=== PATIENT | female | born 1940 | race Caucasian/White ===

== ENCOUNTER 2017-11-05 14:00 | Emergency (ER) | payer MEDICARE, BC ==
[~2017-11-05] VITALS: Ht 162.6 cm; Wt 68.0 kg
[~2017-11-05 14:00] MED LIST: ATORVASTATIN CA10 MG ORAL; BUSPAR10 MG ORAL; FOLIC ACID1 MG ORAL; LANOXIN125 MCG ORAL; LEVOTHYROXINE50 MCG ORAL; LORAZEPAM2 MG/1 M4 ORAL; LYRICA75 M1 ORAL; METHOTREXATE2.5 MG PO; NORCO 5-325 TA1 EAC1 ORAL; PAXIL10 MG ORAL; PRAMIPEXOLE D0.25 MG ORAL; PROTONIX40 MG ORAL; TOPIRAMATE25 MG ORAL; TRAZODONE HCL150 MG ORAL; WELLBUTRIN SR100 MG ORAL; atarax PO
[2017-11-05 14:12] VITALS: BP 145/62
[2017-11-05] MEDS ORDERED: SIMPONI AR50 MG/4 ML IV (14:16)
[2017-11-05] MEDS ORDERED: NORVASC5 MG ORAL (14:16)
[2017-11-05] MEDS ORDERED: LYRICA75 M1 ORAL (14:16)
[2017-11-05] MEDS ORDERED: PRAMIPEXOLE D0.25 MG ORAL (14:16)
[2017-11-05] MEDS ORDERED: SUCRALFATE1 GM ORAL (14:16)
[2017-11-05] MEDS ORDERED: VITAMIN D250000 UNI1 ORAL (14:16)
[2017-11-05] MEDS ORDERED: LANOXIN125 MCG ORAL (14:16)
[2017-11-05] MEDS ORDERED: CREON DR 24,001 EACH PO (14:16)
[2017-11-05] MEDS ORDERED: PREMARIN0.625 MG ORAL (14:16)
[2017-11-05] MEDS ORDERED: oxyCODONE HCL/Acetaminophen 5/325mg PO ONE (14:30)
[2017-11-05] MEDS ORDERED: Tetanus/Diptheria/Pertussis Vaccine 0.5ml Syr IM ONE (14:30)
[2017-11-05] MEDS ORDERED: oxyCODONE HCL/Acetaminophen 5/325mg ORAL ONE (14:51)
--- NOTE | 2017-11-05 14:59 | Emergency Room Report ---
History of Present Illness General Chief Complaint: Multiple Trauma/Fall Source: Patient, EMS Present Illness HPI 77-year-old female presents ED for evaluation. Patient brought in by EMS. States that she tripped across the street and fell landing forward hitting her head. Denies LOC. Presents with bruising and swelling to forehead and nose. Tetanus unknown. Pain is 8 out of 10, throbbing, nonradiating. Denies photophobia or blurry vision denies neck stiffness. Denies nausea or vomiting. No other aggravating relieving factors. Denies any other associated symptoms Allergies: Coded Allergies: SCOPOLAMINE (Verified Allergy, Intermediate, 11/03/17) decreased blood pressure ACETAMINOPHEN (Verified Allergy, Mild, 11/03/17) confused HYDROCODONE (Verified Allergy, Mild, 11/03/17) confused OXYCODONE (Verified Allergy, Mild, 11/03/17) ams Patient History Past Medical History: HTN Past Surgical History: none Pertinent Family History: none Social History: Denies: smoking, alcohol use, drug use Now: No Immunizations: UTD Reviewed Nursing Documentation: PMH: Agreed; PSxH: Agreed Nursing Documentation-PMH Hx Cardiac Problems: Yes - Heart attack 2007 Hx Hypertension: Yes Review of Systems All Other Systems: negative except mentioned in HPI Physical Exam Vital Signs Date Time Temp Pulse Resp B/P (MAP) Pulse Ox O2 Delivery O2 Flow Rate FiO2 11/05/17 14:02 97.9 64 18 148/66 98 Room Air 97.9 Sp02 EP Interpretation: reviewed, normal General Appearance: no apparent distress, alert, GCS 15, non-toxic Head: normocephalic, other - large swelling/hematoma to forehead Eyes: bilateral eye normal inspection, bilateral eye PERRL ENT: hearing grossly normal, normal pharynx, no angioedema, normal voice, TMs + canals normal, other - abrasion/bruisnig to nose Neck: full range of motion, no bony tend, supple/symm/no masses Respiratory: chest non-tender, lungs clear, normal breath sounds, speaking full sentences Cardiovascular #1: regular rate, rhythm, no edema Gastrointestinal: normal inspection Rectal: deferred Genitourinary: no CVA tenderness Musculoskeletal: back normal, gait/station normal, normal range of motion, non- tender Neurologic: alert, oriented x3, responsive, motor strength/tone normal, sensory intact, speech normal Psychiatric: judgement/insight normal, memory normal, mood/affect normal, no suicidal/homicidal ideation Skin: normal inspection Lymphatic: normal inspection Medical Decision Making Diagnostic Impression: Primary Impression: Hematoma of frontal scalp Qualified Codes: S00.03XA - Contusion of scalp, initial encounter Additional Impression: Fall Qualified Codes: W19.XXXA - Unspecified fall, initial encounter ER Course Hospital Course 77-year-old female presents ED with large frontal swelling and abrasion status post mechanical fall. No LOC Differential diagnoses include: skull fx, intracranial injury, concussion Clinical course Patient placed on stretcher. After initial history and physical I ordered CT head, facial bones, tetanus and pain medications CT head shows no acute process. There is large frontal cephalohematoma wounds irrigated. bacitracin/dressing applied Patient remains awake alert oriented 3. Not taking blood thinners. Patient safe for discharge and close outpatient follow-up Diagnosis - hematoma of frontal scalp, fall Stable and discharged to home with Rx percocet, bacitracn. Followup with PMD. Return to ED if symptoms recur or worsen CT/MRI/US Diagnostic Results CT/MRI/US Diagnostic Results #1: Imaging Test Ordered: CT Head Impression no acute process CT/MRI/US Diagnostic Results #2: Imaging Test Ordered: CT Facial Impression large cephalofrontal hematoma Last Vital Signs Date Time Temp Pulse Resp B/P (MAP) Pulse Ox O2 Delivery O2 Flow Rate FiO2 11/05/17 14:02 97.9 64 18 148/66 98 Room Air 97.9 Status: improved Disposition: HOME, SELF-CARE Condition: Stable Scripts Bacitracin (Bacitracin) 28.4 Gm Oint...g. 1 APPLIC TOPIC THREE TIMES A DAY, #28.4 GM Prov: Dipesh Chen MD 11/05/17 Oxycodone/Acetaminophen 5-325* (PERCOCET 5-325 MG TABLET*) 1 Each Tablet 1 TAB ORAL Q6H PRN for For Pain, #20 TAB Prov: Dipesh Chen MD 11/05/17 Dipesh Chen MD Nov 05, 2017 14:59
--- NOTE | 2017-11-05 15:05 | Diagnostic Imaging Report ---
Indication: Trauma and facial pain Technique: Continuous helical transaxial imaging of the maxillofacial structures obtained without intravenous contrast administration. Coronal 2-D reformats were also obtained. Study obtained in a Siemens sensation [address] Automatic Exposure Control was utilized. Total Dose length Product (DLP): [address] Dose Index Volume (CTDIvol): 0.15, 70.38, 28.19 mGy Comparison: None Findings: There is a large cephalohematoma over the frontal region. The orbits are intact and normal. Paranasal sinuses are clear. There is a mild fracture of the nasal bone on the right, probably acute. Mastoids are clear. IMPRESSION: Acute nasal fracture. Frontal cephalohematoma The CT scanner at [facility] is accredited by the [employer] and the scans are performed using dose optimization techniques as appropriate to a performed exam including Automatic Exposure control.
--- NOTE | 2017-11-05 15:06 | Diagnostic Imaging Report ---
Indication: Head trauma. Headache Technique: Contiguous 5 mm thick transaxial imaging of the head obtained in a Siemens Sensation [address] scanner. Soft tissue and bone windows generated. Automatic Exposure Control was utilized. Total Dose length Product (DLP): 1861.[address] Dose Index Volume (CTDIvol): 70.38,28.19 mGy Comparison: none Findings: There is mild prominence of the ventricles, basal cisterns, and cerebral sulci consistent with atrophy. Mild, nonspecific, white matter hypoattenuation is noted throughout the brain consistent with chronic small vessel disease. There is no midline shift, edema, acute hemorrhage, mass effect, or abnormal extra-axial fluid collections. Bones appear unremarkable. There is a frontal cephalohematoma. Impression: No acute intracranial bleed, mass effect or edema. Mild atrophy of the brain. Nonspecific white matter hypoattenuation probably due to chronic small vessel disease. The CT scanner at [facility] is accredited by the [employer] and the scans are performed using dose optimization techniques as appropriate to a performed exam including Automatic Exposure control.
[2017-11-05] MEDS ORDERED: BACITRACIN15 GM TOPIC (15:27)
[2017-11-05] MEDS ORDERED: PERCOCET 5-3251 EACH ORAL (15:27)
[2017-11-05] MEDS ORDERED: Bacitracin Oint UD TOPIC ONE (15:30)
[2017-11-05] MEDS ORDERED: Morphine Sulfate 4mg/ml Inj IM ONE (15:30)
[2017-11-05 15:38] VITALS: BP 142/62
[2017-11-05 16:10] VITALS: BP 142/62
== END 2017-11-05 16:27 | disposition home or self-care (01) ==
LOC: EDBD 14:00 → EDUNIT# 14:00 → EMR 15:27
DX: S00.03XA Contusion of scalp, initial encounter (principal); S02.2XXA Fracture of nasal bones, initial encounter for closed fracture; S00.31XA Abrasion of nose, initial encounter; W01.0XXA Fall on same level from slipping, tripping and stumbling without subsequent striking against object, initial encounter; Y92.410 Unspecified street and highway as the place of occurrence of the external cause; Z23 Encounter for immunization; I10 Essential (primary) hypertension; Z88.6 Allergy status to analgesic agent; Z88.8 Allergy status to other drugs, medicaments and biological substances
CPT/HCPCS: 70450; 70486; 90471; 90715; 96372; 99284; J2270